=== PATIENT | male | born 1945 | race Caucasian/White ===

== ENCOUNTER 2017-02-26 12:42 | Day surgery (SDC) | payer MEDICARE ==
[~2017-02-26] VITALS: Ht 185.4 cm; Wt 124.7 kg
[~2017-02-26 12:42] MED LIST: 0.9% Sodium Chloride 1,000 ML IV SCH; ALLO300T2 PO; ASCO-294 PO; CIPR-231 PO; FLUT16SP NS; KEN25CR EXT; LOSA1TAB69 PO; MULT-1018 PO; Sodium Biphos-Phos 133 mL Enema RECTAL PRN; Sodium Chloride LOK Flush 10 mL Syringe IV PRN; fentaNYL-PF 50 mCg/mL 2 mL Inj IVPUSH PRN
[2017-02-26 13:09] VITALS: BP 153/80; PULSE 68; RESP 14; O2SAT 96
[2017-02-26 14:22] VITALS: BP 137/71; PULSE 68; RESP 17; O2SAT 92
[2017-02-26 14:31] VITALS: BP 133/69; PULSE 65; RESP 15; O2SAT 96
--- NOTE | 2017-02-26 14:33 | ENDO ---
[address] [address] ENDOSCOPY PROCEDURE PATIENT: AGUSTÍN DE JESUS : 1945 MR#: [id number] ADMIT: 02/26/2017 JOB ID: [id number] DATE: 02/26/2017 PRE-PROCEDURE DIAGNOSIS: Rectal bleeding. POST-PROCEDURE DIAGNOSIS: 1. Diverticulosis. 2. Internal hemorrhoid, status post rubber banding. PROCEDURE: Colonoscopy. ENDOSCOPIST: Dr. Clinton Baker. MEDICATIONS: 1. Versed 5 mg. 2. Fentanyl 125 mcg. INDICATIONS: The patient is a 71-year-old man who last underwent colonoscopy nine years ago. He also reportedly has a history of ischemic colitis and underwent emergency colon resection with colostomy and subsequent colostomy takedown. He presented with rectal bleeding and this was thought to be secondary to an internal hemorrhoid. He underwent [facility] weeks ago with resolution of his bleeding. After discussion of risks and benefits, he agreed to proceed with colonoscopy with biopsies. FINDINGS: His prior colon anastomosis could not be visualized although in the sigmoid colon region, there were several areas of fairly tight angulation, and the anastomosis could have been in that area. He had pepper colonic diverticulosis, with very large mouthed colon diverticula on the left side. No polyps or masses were seen. Retroflexion in the rectum showed a small ulceration consistent with his recent hemorrhoid banding site. DESCRIPTION OF PROCEDURE: Procedural sedation was achieved. He was connected to hemodynamic monitoring, pulse oximetry, capnography. After digital rectal examination, the PCF H 180 AL colonoscope was inserted and passed under visualization until the ileocecal valve and appendiceal orifice were visualized and photo documented. The scope was then carefully withdrawn and retroflexed in the rectum. His prior colon anastomosis could not be visualized. He had pepper colonic diverticulosis, with very large mouthed diverticula in the sigmoid and descending colon. Retroflexion in the rectum revealed a small ulcerated area consistent with a recently banded internal hemorrhoid, but there was no significant residual internal hemorrhoidal disease. The scope was withdrawn and the procedure terminated. He tolerated the entire procedure well. RECOMMENDATIONS: 1. Continue a high-fiber diet with fiber supplementation. 2. Additional hemorrhoid treatment is not recommended at this time. 3. For screening, recommend colonoscopy in 10 years.
[2017-02-26 14:40] VITALS: BP 144/82; PULSE 73; RESP 15; O2SAT 96
== END 2017-02-26 23:59 | disposition home or self-care (01) ==
LOC: END 12:42
PROVIDERS: ATTEND Student in an Organized Health Care Education/Training Program
DX: K62.5 Hemorrhage of anus and rectum (principal); K57.30 Diverticulosis of large intestine without perforation or abscess without bleeding; K64.8 Other hemorrhoids; K63.89 Other specified diseases of intestine; G47.33 Obstructive sleep apnea (adult) (pediatric); J45.909 Unspecified asthma, uncomplicated
CPT/HCPCS: 45378; 99153; G0500; J7030